=== PATIENT | female | born 1980 | race African-American/Black ===

== ENCOUNTER 2020-06-25 16:44 | Emergency (ER) | payer OTHER ==
[~2020-06-25] VITALS: Ht 167.6 cm; Wt 140.6 kg
[2020-06-25 20:00] VITALS: BP 155/86
== END 2020-06-25 20:28 | disposition home or self-care (01) ==
LOC: ER 16:47
DX: S93.402A Sprain of unspecified ligament of left ankle, initial encounter (principal); X58.XXXA Exposure to other specified factors, initial encounter; Y93.89 Activity, other specified; Y92.89 Other specified places as the place of occurrence of the external cause; Y99.8 Other external cause status
CPT/HCPCS: 73610